=== PATIENT | male | born 1945 | race Two or more races ===

== ENCOUNTER 2025-04-10 14:39 | Inpatient (IN) | payer MEDICARE, OTHER ==
[~2025-04-10] VITALS: Ht 165.1 cm; Wt 70.3 kg
[2025-04-10 15:22] LABS: PLATELET COUNT (AUTO) 242 K/uL (150-450); RED BLOOD CELL COUNT(AUTO) 3.86 MIL/uL (4.5-6.0); RED CELL DISTRIBUTION WIDTH 13.9 % (11.5-15.0); WHITE BLOOD COUNT (AUTO) 8.9 K/uL (4.3-11.0)
[2025-04-10 15:29] LABS: CALCIUM, SERUM 9.0 mg/dL (8.5-10.1); CREATININE 1.7 mg/dL (0.6-1.3); SODIUM SERUM 135 mmol/L (136-145); UREA NITROGEN, BLOOD 32 mg/dL (7-18)
[2025-04-10] MEDS: OLANZAPINE 5 MG TABLET PO ONE (15:30)
[2025-04-10 15:34] LABS: ALCOHOL, BLOOD < 3 mg/dL (0-10); ASPARTATE AMINOTRANSFERASE 20 U/L (15-37); TOTAL PROTEIN, SERUM 7.8 g/dL (6.4-8.2)
[2025-04-10 16:11] LABS: APPEARANCE,URINE CLEAR (CLEAR); BLOOD, URINE Moderate Ery/uL (NEGATIVE); LEUKOCYTE ESTERASE ,URINE Negative (NEGATIVE); UGLUCOSE Negative (NEGATIVE)
[2025-04-10 16:14] LABS: NITRITE, URINE NEGATIVE (NEGATIVE)
[2025-04-10 16:15] LABS: ADD URINE CULTURE NO; SQUAMOUS EPITHELIAL CELL,UR Rare /HPF (None Seen)
[2025-04-10 16:30] LABS: AMPHETAMINE, URINE NEGATIVE (NEGATIVE); BARBITURATE, URINE NEGATIVE (NEGATIVE); BENZODIAZEPINE, URINE NEGATIVE (NEGATIVE); CANNABINOID, URINE NEGATIVE (NEGATIVE); COCCAINE, URINE NEGATIVE (NEGATIVE); OPIATE, URINE NEGATIVE (NEGATIVE)
[2025-04-10] MEDS ORDERED: MAGN400O6 PO (17:26)
[2025-04-10] MEDS ORDERED: DOCU100T2 PO (17:26)
[2025-04-10] MEDS ORDERED: SITA25TA PO (17:26)
[2025-04-10] MEDS ORDERED: ACET-868 PO (17:26)
[2025-04-10] MEDS ORDERED: MULT1CAP44 PO (17:26)
[2025-04-10] MEDS ORDERED: APIX2.5T PO (17:26)
[2025-04-10] MEDS ORDERED: METO25TA6 PO (17:26)
[2025-04-10] MEDS ORDERED: TAMS-12 PO (17:26)
[2025-04-10] MEDS ORDERED: METF-442 PO (17:26)
[2025-04-10] MEDS ORDERED: AMLO5TAB4 PO (17:26)
[2025-04-10] MEDS ORDERED: CRAN400T3 PO (17:26)
[2025-04-10] MEDS ORDERED: OXCA150T5 PO (17:26)
[2025-04-10 18:46] VITALS: BP 147/90; TEMP 98.9; O2SAT 98
[2025-04-10] MEDS ORDERED: MAG HYDROX/AL HYDROX/SIMETH 30 ML UDC PO PRN (19:00)
[2025-04-10] MEDS ORDERED: ACETAMINOPHEN 325 MG TABLET PO PRN (19:00)
[2025-04-10] MEDS ORDERED: MAGNESIUM HYDROXIDE 30 ML UDC PO PRN (19:00)
[2025-04-10] MEDS: BLOOD SUGAR DIAGNOSTIC 1 EACH STRIP IN ONE (20:34)
[2025-04-10] MEDS ORDERED: DEXTROSE 50%-WATER 50 ML DISP.SYRIN IV PRN (22:00)
[2025-04-10] MEDS: BLOOD SUGAR DIAGNOSTIC 1 EACH STRIP IN SCH (22:21)
[2025-04-10] MEDS: TAMSULOSIN 0.4 MG CAP.SR.24H PO SCH (22:23)
[2025-04-11 08:00] VITALS: BP 150/90; TEMP 97.8; O2SAT 97
[2025-04-11] MEDS ORDERED: Medication Not On Formulary EA (Cranberry Fruit (Cranberry) 450 MG) PO SCH (09:00)
[2025-04-11] MEDS: INSULIN REGULAR, HUMAN 100 UNIT/ML 3 ML VIAL SQ PRN (09:04)
[2025-04-11] MEDS: MULTIVITAMINS,THERAGRAN 1 UDTAB TABLET PO SCH (09:13)
[2025-04-11] MEDS: DOCUSATE SODIUM 100 MG CAPSULE PO SCH (09:14)
[2025-04-11] MEDS: LINAGLIPTIN 5 MG TABLET PO SCH (09:14)
[2025-04-11] MEDS: METOPROLOL TARTRATE 25 MG TABLET PO SCH (09:14)
[2025-04-11] MEDS: AMLODIPINE BESYLATE 5 MG TABLET PO SCH (09:14)
[2025-04-11] MEDS: APIXABAN 2.5 MG TABLET PO SCH (09:15)
[2025-04-11] MEDS: LORAZEPAM 0.5 MG TABLET PO ONE (13:41)
[2025-04-11 16:00] VITALS: BP 118/78; TEMP 98; O2SAT 96
[2025-04-11 16:46] LABS: LDL 117 mg/dL (0-99)
[2025-04-11 16:50] LABS: ASPARTATE AMINOTRANSFERASE 24.0 U/L (15-37); CALCIUM, SERUM 9.3 mg/dL (8.5-10.1); CREATININE 1.5 mg/dL (0.6-1.3); SODIUM SERUM 138.0 mmol/L (136-145); TOTAL PROTEIN, SERUM 8.7 g/dL (6.4-8.2); UREA NITROGEN, BLOOD 34.0 mg/dL (7-18)
[2025-04-11] MEDS: DIVALPROEX SODIUM 125 MG CAP.SPRINK PO SCH (17:39)
[2025-04-11 19:29] LABS: CREATININE 1.6 mg/dL (0.6-1.3)
[2025-04-11 21:00] VITALS: BP 137/98; TEMP 98; O2SAT 96
[2025-04-11] MEDS: TRAZODONE 50 MG TABLET PO SCH (21:52)
[2025-04-11] MEDS: QUETIAPINE FUMARATE 25 MG TABLET PO SCH (21:52)
[2025-04-12 08:00] VITALS: BP 110/59; TEMP 97.8; O2SAT 96
[2025-04-12 16:00] VITALS: BP 119/60; TEMP 98; O2SAT 96
[2025-04-12] MEDS: LORAZEPAM 0.5 MG TABLET PO PRN (16:05)
[2025-04-12] MEDS: OLANZAPINE 10 MG VIAL IM ONE (16:56)
[2025-04-12 20:12] VITALS: BP 136/63; TEMP 97.7; O2SAT 97
[2025-04-12] MEDS: TEMAZEPAM 7.5 MG CAPSULE PO PRN (22:36)
[2025-04-13 08:00] VITALS: BP 117/83; TEMP 97.7; O2SAT 100
[2025-04-13 16:00] VITALS: BP 112/63; TEMP 98; O2SAT 98
[2025-04-13 20:09] VITALS: BP 103/74; TEMP 97.5; O2SAT 98
[2025-04-14 08:04] VITALS: BP 110/59; TEMP 97.7; O2SAT 97
[2025-04-14] MEDS: DIVALPROEX SODIUM 125 MG CAP.SPRINK PO SCH (12:49)
[2025-04-14 15:59] VITALS: BP 141/99; TEMP 97.8; O2SAT 98
[2025-04-14 20:11] VITALS: BP 135/84; TEMP 97.8; O2SAT 99
[2025-04-15 08:00] VITALS: BP 132/84; TEMP 97.8; O2SAT 98
[2025-04-15 16:00] VITALS: BP 116/84; TEMP 98.1; O2SAT 96
[2025-04-15 20:14] VITALS: BP 115/69; TEMP 98; O2SAT 97
[2025-04-16 08:00] VITALS: BP 133/88; TEMP 97.9; O2SAT 99
[2025-04-16 16:00] VITALS: BP 147/91; TEMP 98.2; O2SAT 98
[2025-04-16 20:00] VITALS: BP 134/69; TEMP 97.7; O2SAT 99
[2025-04-17 08:00] VITALS: BP 132/75; TEMP 97.5; O2SAT 95
[2025-04-17 16:00] VITALS: BP 113/52; TEMP 97.7; O2SAT 91
[2025-04-17 22:33] VITALS: BP 136/86; TEMP 97.8; O2SAT 96
[2025-04-18 08:00] VITALS: BP 119/60; TEMP 97.8; O2SAT 95
[2025-04-18 16:00] VITALS: BP 121/94; TEMP 97.5; O2SAT 95
[2025-04-18 20:10] VITALS: BP 130/74; TEMP 98.8; O2SAT 97
[2025-04-19 07:44] LABS: PLATELET COUNT (AUTO) 240 K/uL (150-450); RED BLOOD CELL COUNT(AUTO) 4.26 MIL/uL (4.5-6.0); RED CELL DISTRIBUTION WIDTH 13.7 % (11.5-15.0); WHITE BLOOD COUNT (AUTO) 8.4 K/uL (4.3-11.0)
[2025-04-19 08:00] VITALS: BP 96/74; TEMP 97.7; O2SAT 99
[2025-04-19 08:09] LABS: VALPROIC ACID 21.0 ug/mL (50-100)
[2025-04-19 08:15] LABS: ASPARTATE AMINOTRANSFERASE 17.0 U/L (15-37); CALCIUM, SERUM 8.9 mg/dL (8.5-10.1); CREATININE 1.6 mg/dL (0.6-1.3); PHOSPHORUS 3.4 mg/dL (2.5-4.9); TOTAL PROTEIN, SERUM 7.5 g/dL (6.4-8.2); UREA NITROGEN, BLOOD 27.0 mg/dL (7-18)
[2025-04-19 10:19] LABS: SODIUM SERUM 143.0 mmol/L (136-145)
[2025-04-19 11:13] LABS: SERUM AMMONIA 8.0 umol/L (11-32)
[2025-04-19 12:25] LABS: EOSINOPHILS % (MANUAL) 6 % (0-4); LYMPHOCYTES % (MANUAL) 17 % (16-48); MONOCYTES % (MANUAL) 11 % (0-11.0); NEUTROPHILS % (MANUAL) 66 (42-76); PLATELET ESTIMATE ADEQU
[2025-04-19 16:00] VITALS: BP 105/86; TEMP 98.6; O2SAT 97
[2025-04-19 20:09] VITALS: BP_SYST 110; BP_SYST 96; BP_DIAS 71; BP_DIAS 85; TEMP 98.4; O2SAT 98
[2025-04-20 08:00] VITALS: BP 108/54; TEMP 98; O2SAT 96
[2025-04-20 16:00] VITALS: BP 92/67; TEMP 97.9; O2SAT 98
[2025-04-20 20:00] VITALS: BP 123/82; TEMP 98.5; O2SAT 95
[2025-04-20 20:11] VITALS: BP 123/82; TEMP 98.5; O2SAT 95
[2025-04-21 08:00] VITALS: BP 110/67; TEMP 97.7; O2SAT 98
[2025-04-21 08:42] LABS: CALCIUM, SERUM 9.3 mg/dL (8.5-10.1); CREATININE 1.7 mg/dL (0.6-1.3); SODIUM SERUM 142.0 mmol/L (136-145); UREA NITROGEN, BLOOD 33.0 mg/dL (7-18)
[2025-04-21 16:02] VITALS: BP 103/68; TEMP 98.9; O2SAT 98
[2025-04-21 19:54] VITALS: BP 107/66; TEMP 97.7; O2SAT 97
[2025-04-22 08:00] VITALS: BP 121/88; TEMP 98.7; O2SAT 98
[2025-04-22] MEDS ORDERED: Z GUARD REMEDY 4 OZ OINT TP PRN (08:30)
[2025-04-22] MEDS: NEOMY SULF/BACITRAC ZN/POLY 15 GM TUBE TP SCH (10:49)
[2025-04-22 16:00] VITALS: BP 109/69; TEMP 98.1; O2SAT 100
[2025-04-22] MEDS: DIVALPROEX SODIUM 125 MG CAP.SPRINK PO SCH (16:39)
[2025-04-22 20:11] VITALS: BP 111/75; TEMP 97.6; O2SAT 100
[2025-04-23 08:09] VITALS: BP 120/81; TEMP 97.7; O2SAT 98
[2025-04-23 09:23] VITALS: BP 120/81
== END 2025-04-23 13:55 | DRG 885 ==
LOC: ER 14:46 → GPS 17:50
PROVIDERS: ADMIT Psychiatry & Neurology Psychosomatic Medicine
DX: F25.0 Schizoaffective disorder, bipolar type (principal); N18.9 Chronic kidney disease, unspecified; N17.9 Acute kidney failure, unspecified; I48.20 Chronic atrial fibrillation, unspecified; F01.511 Vascular dementia, unspecified severity, with agitation; J98.11 Atelectasis; D64.9 Anemia, unspecified; I12.9 Hypertensive chronic kidney disease with stage 1 through stage 4 chronic kidney disease, or unspecified chronic kidney disease; E11.22 Type 2 diabetes mellitus with diabetic chronic kidney disease; Z79.01 Long term (current) use of anticoagulants; Z91.199 Patient's noncompliance with other medical treatment and regimen due to unspecified reason; Z86.73 Personal history of transient ischemic attack (TIA), and cerebral infarction without residual deficits; L40.9 Psoriasis, unspecified; N40.0 Benign prostatic hyperplasia without lower urinary tract symptoms; Z79.899 Other long term (current) drug therapy; Z78.1 Physical restraint status
CPT/HCPCS: 36415; 71045-TC; 80048-TC; 80053-TC; 80061-TC; 80076-TC; 80164-TC; 81001; 82140-TC; 82565-TC; 82962-TC; 83735-TC; 84100-TC; 84484-TC; 85025-TC; 87081-TC; G0480; J1815; J3490